=== PATIENT | female | born 1980 | race Caucasian/White ===

== ENCOUNTER 2016-12-24 10:02 | Emergency (ER) | payer OTHER ==
[2016-12-24 10:53] LABS: Hematocrit 39.2 % (37.0-47.0); Hemoglobin 13.2 gm/dL (12.5-16.0); Mean Corpuscular Hgb Conc 33.7 g/dl (32-36); Mean Platelet Volume 9.7 fl (6.0-9.5); Neutrophil # 6.8 K/mm3 (1.3-6.0); Platelet Count 184 K/mm3 (150-450); Red Blood Count 4.26 M/mm3 (4.2-5.4); Red Cell Distribution Width 12.5 % (11.5-14.0); White Blood Count 8.3 K/mm3 (4.0-10.5)
[2016-12-24] MEDS ORDERED: PROMETHAZINE HCL 25 MG in DEXTROSE 5 % IN WATER 50 ML IV ONE ×2 (10:58)
--- OUTSIDE RECORDS SUMMARY | 2016-12-24 11:08 | XMS REPORT | Continuity of Care Document ---
:1980 Author Organization [facility] ([facility]) Address [address] [place] [address] Phone [phone] Care Team Providers Name Role Phone Provider, No-Primary Care Primary Care Provider Unavailable Source Comments This disclosure is being made pursuant to the Care Everywhere program, applicable federal and state laws, and may not contain all informaitonavailable regarding this patient.[facility] ([facility]) Active Allergies and Adverse Reactions No Known Allergies Current Medications Prescription Sig. Disp. Refills Start Date End Date Status VIT/IRON Take by mouth Active FUMARATE/FA ( PO) daily. SERTraline (ZOLOFT) 50 mg Take 50 mg by Active tablet mouth daily. Active Problems Not on file Social History Tobacco Use Types Packs/Day Years Used Date Never Smoker Alcohol Use Drinks/Week oz/Week Comments Yes socially not during Last Filed Vital Signs Vital Sign Reading Time Taken Blood Pressure 103/65 05/29/2013 10:21 AM CDT Pulse 100 05/29/2013 10:21 AM CDT Temperature 36.4 C (97.5 F) 05/29/2013 10:21 AM CDT Respiratory Rate 16 05/29/2013 10:21 AM CDT Height 1.778 m (5' 10") 05/29/2013 10:21 AM CDT Weight 81 kg (178 lb 9.2 oz) 05/29/2013 10:21 AM CDT Body Mass Index 25.62 05/29/2013 10:21 AM CDT Oxygen Saturation - - Plan of Care Health Maintenance Due Date Last Done Comments Hepatitis B Vaccine (1 of 3 - Primary Series) 1980 Tdap Vaccine 1992 Lipid Disorder Screening 1999 MMR Vaccine 1999 Td Vaccine 1999 Varicella Vaccine (1 of 2 - Adult - No Evidence of 1999 Immunity) Cervical Cancer Screening 2011 Influenza Vaccine: Seasonal (#1) 06/12/2016 Results from Last 3 Months Not on file
[2016-12-24 11:11] LABS: Albumin * 3.9 gm/dl (3.4-5.0); Anion Gap 15.2 mmol/L (6.8-13.8); BUN/Creatinine Ratio 13.6 (9.0-21.6); Bilirubin, Total 0.4 mg/dL (0.0-1.1); Ca. Corrected For Albumin 8.6 mg/dL (8.4-10.2); Calcium * 8.8 mg/dL (7.9-10.9); Carbon Dioxide 24.4 mmol/L (24-32.6); Potassium 3.6 mmol/L (3.4-4.6); Total Protein 7.4 gm/dL (6.2-8.2)
[2016-12-24 11:32] VITALS: BP 105/57
[2016-12-24 12:16] LABS: Urine Bilirubin Negative (NEGATIVE); Urine Blood 250 /ul (NEGATIVE); Urine Ketone 5 mg/dL (NEGATIVE); Urine Nitrite Negative (NEGATIVE); Urine Protein 30 mg/dL (NEGATIVE); Urine Specific Gravity >=1.030 SP.GR. (1.005-1.010); Urine Urobilinogen Normal (NORMAL)
[2016-12-24 12:19] LABS: Urine Appearance Cloudy; Urine Color Dark Yellow
[2016-12-24 12:23] LABS: Urine Bacteria 2+; Urine RBC >50 /hpf (0-5); Urine WBC 0-5 /hpf (0-5)
[2016-12-24] MEDS ORDERED: KETOROLAC TROMETHAMINE 30 MG/ML VIAL IV ONE (12:51)
[2016-12-24] MEDS ORDERED: KETOROLAC TROMETHAMINE 30 MG/ML VIAL ONE (14:18)
--- NOTE | 2016-12-24 15:33 | ERNOTE ---
Medical Problem HPI - Narrative Date of Service: 12/24/16 - General Chief Complaint: Nausea/Vomiting Time Seen by Provider: 12/24/16 10:47 Source: patient Exam Limitations: no limitations - Immun/Allergies/Home Medications Immunizations: IMMUNIZATION HX History of Influenza Vaccine Yes Hx Pneumococcal Vaccination Yes Allergies/Adverse Reactions: Allergies No Known Allergies Allergy (Verified 12/24/16 10:35) Home Medications: HOME MEDICATIONS Sertraline HCl [Zoloft] 50 mg PO DAILY 08/08/13 [Last Taken 08/08/13 08:00] Cefuroxime Axetil [Ceftin] 250 mg PO Q12H #6 tab 12/24/16 [Last Taken Unknown] Hydrocodone/Acetaminophen [Bonanza 5-325 Tablet] 1 tab PO Q6H PRN #12 tab [Last Taken Unknown] Ondansetron [Zofran Odt] 4 mg PO Q8H PRN #10 tab 12/24/16 [Last Taken Unknown] Tamsulosin HCl [Flomax] 0.4 mg PO DAILY@1800 #7 cap 12/24/16 [Last Taken Unknown ] - History of Present History Narrative: patient presents to the ED for back pain and vomiting. The pain started this morning, left back. hit her all of a sudden. Never had anything like it before. pain severe. She started vomiting. Pain is now improved. She also had some mild diarrhea. No blood in vomit or stool. No fever. No dysuria. No abdominal pain. Has not seen anyone else for this. Pain now controlled. Still nauseated. Vomited several times. Pain was severe. Timing: other - improved Severity: severe Modifying Factors - (Improves): Present: other - nothing Modifying Factors - (Worsens): Present: other - nothing Review of Systems - Review of Systems Constitutional: Absent: fever EYE: Present: no symptoms reported ENT: Present: other - exposure to strep but no Sx Respiratory: Absent: shortness of breath Cardiology: Absent: chest pain Gastrointestinal/Abdominal: Present: See HPI Genitourinary: Absent: pain Musculoskeletal: Present: back pain All Other Systems: All systems neg except as marked - Patient's Past Medical History Patient History - Medical: No pertinent hx Patient History - Cardiac/Respiratory: No pertinent hx Patient History - Cancer: No Hx of Cancer Patient History - Surgical Procedures: No surgical history Patient History - Other: None - Social History Living Situations: home Psych History: Hx of Depression - Immunizations Hx Pneumococcal Vaccination: Yes History of Influenza Vaccine: Yes Physical Exam - Physical Exam General Appearance: Present: alert, no apparent distress Eye Exam: Normal inspection: bilateral, PERRL: bilateral Ears, Nose, Throat: Present: normal ENT inspection. Absent: dry mucous membranes Neck: Present: normal inspection Respiratory: Present: no respiratory distress, normal breath sounds, no accessory muscle use, lungs clear Cardiovascular/Chest: Present: regular rate, rhythm Gastrointestinal/Abdominal: Present: normal bowel sounds, nontender, nondistended, soft, no organomegaly. 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 Absent: motor weakness Skin Exam: Absent: skin rash ED Progress - Results and Orders Patient's Lab Results:: I have reviewed the patient's lab results. - Vital Signs Patient's Vital Signs:: I have reviewed the patient's vital signs. Vital Signs: Vital Signs 12/24/16 12/24/16 12/24/16 10:30 11:29 12:33 Temperature 35.6 C L 36.2 C L Pulse Rate 91 Respiratory 12 Rate Blood Pressure 111/67 105/57 O2 Sat by Pulse 100 Oximetry - CT/Ultrasound CT/Ultrasound Narrative: I reviewed the official radiology report for the CT scan - Progress/Reassessment Chief Complaint: Nausea/Vomiting Progress Note-Subjective: 12/24/16 15:25 patient had resolution if her pain. She had no further vomiting. She felt well enough to go home. [facility] not available. Pt preference [facility]. D/W Dr [facility]. They will see her tomorrow in the clinic, they will call her in the morning for an appointment time. Pt no evidence of sepsis or infected kidney stone. She feels like going home. I discussed warning signs and reasons to return as well as the need for close f/u. Departure - Departure Clinical Impression: Kidney stone on left side Disposition: Home self-care Condition: Stable Instructions: Kidney Stones, [id number] Additional Instructions: Strain all urine. Medications as directed. Fluids. The [facility] will call you in the morning for an appointment time. You need to be seen there tomorrow. They want you to take the CD with the CT scan with you. Please do not eat or drink anything 6 hours prior to your appointment. If you develop fever, vomiting, increased pain or your condition worsens or changes in any way please go immediately to the ER at the [facility], he Urologist requested this. Referrals: Juany Villa MD [Primary Care Provider] - Prescriptions: Cefuroxime Axetil [Ceftin] 250 mg PO Q12H #6 tab Hydrocodone/Acetaminophen [Bonanza 5-325 Tablet] 1 tab PO Q6H PRN #12 tab PRN Reason: Pain Ondansetron [Zofran Odt] 4 mg PO Q8H PRN #10 tab PRN Reason: Nausea Tamsulosin HCl [Flomax] 0.4 mg PO DAILY@1800 #7 cap
== END 2016-12-24 16:20 | disposition home or self-care (01) ==
LOC: ER 10:02
DX: N20.0 Calculus of kidney (principal)

== ENCOUNTER 2016-12-29 08:52 | Day surgery (SDC) | payer OTHER ==
[~2016-12-29 08:52] MED LIST: CIPROFLOXACIN HCL 500 MG TABLET PO PRN
--- OUTSIDE RECORDS SUMMARY | 2016-12-29 08:56 | XMS REPORT | Continuity of Care Document ---
:1980 Author Organization [facility] ([facility]) Address [address] [place] [address] Phone [phone] Care Team Providers Name Role Phone Provider, No-Primary Care Primary Care Provider Unavailable Source Comments This disclosure is being made pursuant to the Care Everywhere program, applicable federal and state laws, and may not contain all informaitonavailable regarding this patient.[facility] ([facility]) Active Allergies and Adverse Reactions No Known Allergies Current Medications Prescription Sig. Disp. Refills Start Date End Date Status VIT/IRON Take by mouth Active FUMARATE/FA ( PO) daily. SERTraline (ZOLOFT) 50 mg Take 50 mg by Active tablet mouth daily. Active Problems Not on file Most Recent Encounters Date Type Specialty Providers Description 12/25/2016 Telephone Urology Epi Avilez MD Chief Comp: Patient Concern 12/25/2016 Telephone Urology Epi Avilez MD Chief Comp: Appointment Request 12/24/2016 Hospital Encounter Patient Services Social History Tobacco Use Types Packs/Day Years [...]
[2016-12-29] MEDS ORDERED: LIDOCAINE HCL 10 APPL CARTRIDGE TP ONE (09:35)
[2016-12-29 10:15] VITALS: BP 114/64
== END 2016-12-29 08:53 | disposition home or self-care (01) ==
LOC: AMB 08:52
PROVIDERS: ATTEND Urology
PROC: 0TP98DZ Removal of Intraluminal Device from Ureter, Via Natural or Artificial Opening Endoscopic (ICD-10-PCS; principal; 2016-12-29 12:40)
DX: N20.1 Calculus of ureter (principal); Z68.25 Body mass index [BMI] 25.0-25.9, adult